=== PATIENT | male | born 1965 | race Caucasian/White ===

== ENCOUNTER 2022-03-22 01:32 | Emergency (ER) | payer SELFPAY ==
[~2022-03-22] VITALS: Ht 185.4 cm; Wt 77.2 kg
[~2022-03-22 01:32] MED LIST: NO HOME MEDS
[2022-03-22] MEDS ORDERED: LIDOCAINE 1%/EPI 1:100,000 inj. 10 ML multi-dose vial IJ ONE (01:45)
[2022-03-22] MEDS ORDERED: DOXYCYCLINE 100MG CAPSULE PO STA (01:45)
[2022-03-22] MEDS ORDERED: TETanus/Pertussis (Acell)/Diphther VAC/PF (Tdap-Adult) 0.5ml syringe IMVAC ONE (01:45)
[2022-03-22] MEDS ORDERED: DOXY100C76 PO (01:47)
[2022-03-22 02:41] VITALS: BP 147/94
== END 2022-03-22 02:49 ==
LOC: ER 01:32
DX: S51.012A Laceration without foreign body of left elbow, initial encounter (principal); S01.511A Laceration without foreign body of lip, initial encounter; Z02.89 Encounter for other administrative examinations; Z79.1 Long term (current) use of non-steroidal anti-inflammatories (NSAID); Z85.47 Personal history of malignant neoplasm of testis; Z88.8 Allergy status to other drugs, medicaments and biological substances; Y04.0XXA Assault by unarmed brawl or fight, initial encounter; Y93.89 Activity, other specified; Y92.89 Other specified places as the place of occurrence of the external cause; Y99.8 Other external cause status
CPT/HCPCS: 12002; 99283; A6449